=== PATIENT | female | born 1995 | race Caucasian/White ===

== ENCOUNTER 2019-10-27 12:06 | Outpatient (CLI) | payer BC ==
--- NOTE | 2019-10-27 13:57 | RAD ---
PA AND LATERAL VIEWS OF THE CHEST: HISTORY: exam. COMPARISON: 03/21/2019. FINDINGS: The cardiomediastinum is normal. The lungs are expanded and clear. The bony thorax is normal. IMPRESSION: Normal exam. POS: [id number]
== END 2019-10-27 12:07 | disposition home or self-care (01) ==
LOC: BICRAD 12:06
PROVIDERS: ATTEND Family Medicine
DX: Z00.00 Encounter for general adult medical examination without abnormal findings (principal)
CPT/HCPCS: 71046; 82306; 86780; 87389